=== PATIENT | male | born 1935 | race Caucasian/White ===

== ENCOUNTER → 2023-08-04 15:35 | Outpatient (REF) | payer OTHER, SELFPAY | LOC: RAD 15:35 | PROVIDERS: ATTENDING PHYSICIAN Internal Medicine Critical Care Medicine; FAMILY PHYSICIAN Internal Medicine | DX: R91.8 Other nonspecific abnormal finding of lung field (principal) | CPT/HCPCS: 71250 ==

== ENCOUNTER → 2023-08-14 08:29 | Outpatient (REF) | payer OTHER, SELFPAY | LOC: RAD 08:29 | PROVIDERS: ATTENDING PHYSICIAN Surgery; FAMILY PHYSICIAN Internal Medicine | DX: Z87.442 Personal history of urinary calculi (principal) | CPT/HCPCS: 76770 ==

== ENCOUNTER → 2023-11-11 14:11 | Outpatient (REF) | payer OTHER, SELFPAY | LOC: RCS 14:11 | PROVIDERS: ATTENDING PHYSICIAN Internal Medicine; FAMILY PHYSICIAN Internal Medicine | DX: R06.09 Other forms of dyspnea (principal); I25.10 Atherosclerotic heart disease of native coronary artery without angina pectoris; I10 Essential (primary) hypertension; Z95.1 Presence of aortocoronary bypass graft; I45.4 Nonspecific intraventricular block | CPT/HCPCS: 93306 ==